=== PATIENT | female | born 1945 | race Caucasian/White ===

== ENCOUNTER → 2017-10-16 | Outpatient (CLI) | payer MEDICARE | END | disposition home or self-care (01) | LOC: CFH 10:17 | PROVIDERS: ATTEND Nurse Practitioner Family | DX: N64.89 Other specified disorders of breast (principal); Z85.3 Personal history of malignant neoplasm of breast | CPT/HCPCS: 77066 ==

== ENCOUNTER → 2017-11-24 | Outpatient (CLI) | payer MEDICARE ==
[~2017-11-24] MED LIST: LIDOCAINE 1%, 20ML ONE; LIDOCAINE 1%-EPI 1:100K, 20ML ONE; LIDOCAINE 1%-EPI 1:100K, 50ML ONE; SODIUM BICARBONATE 4.2%, 5ML ONE
== END | disposition home or self-care (01) ==
LOC: CFH 09:00
PROVIDERS: ATTEND Surgery
DX: N64.89 Other specified disorders of breast (principal); Z85.3 Personal history of malignant neoplasm of breast
CPT/HCPCS: 19081; 38505; 76641; 76942; 77065; J3490; 88305

== ENCOUNTER 2017-12-14 10:26 | Day surgery (SDC) | payer MEDICARE ==
[2017-12-11 14:09] LABS: BASOPHILS # (AUTO) 0.06 x10^3/uL (0-0.1); BASOPHILS % (AUTO) 1 % (0-1); EOSINOPHILS % (AUTO) 3 % (1-7); LYMPHOCYTES # (AUTO) 2.56 x10^3/uL (1-3.4); LYMPHOCYTES % (AUTO) 39 % (22-44); MD NO; MEAN CORPUSCULAR HEMOGLOBIN 30.8 pg (27.0-34.8); MEAN CORPUSCULAR HGB CONC 32.8 g/dL (32.4-35.8); MEAN CORPUSCULAR VOLUME 93.9 fL (80-100); MONOCYTES # (AUTO) 0.62 x10^3/uL (0.2-0.8); MONOCYTES % (AUTO) 9 % (2-9); NEUTROPHILS % (AUTO) 48 % (42-75); PLATELET COUNT 350 x10^3/uL (130-400); RED BLOOD COUNT 4.42 x10^6/uL (3.82-5.3); RED CELL DISTRIBUTION WIDTH 13.5 % (9.6-15.2)
[2017-12-11 14:18] LABS: ALBUMIN 4.2 g/dL (3.4-5.0); ANION GAP 8 mmol/L (5-15); CHLORIDE 101 mmol/L (98-107)
[2017-12-11 14:22] LABS: ALANINE AMINOTRANSFERASE 29 U/L (12-78); ALKALINE PHOSPHATASE 73 U/L (45-117); BILIRUBIN,TOTAL 0.3 mg/dL (0.2-1.0); CREATININE 0.69 mg/dL (0.55-1.02); TOTAL PROTEIN 8.4 g/dL (6.4-8.2)
[~2017-12-14] VITALS: Ht 156.2 cm; Wt 53.3 kg
[~2017-12-14 10:26] MED LIST changes: +BUPIVACAINE/PF-EPI 0.5% 1:200K ONE; +IRBE1TAB37 PO; +ISOSULFAN BLUE 10 MG/ML, 5ML IV ONE; -LIDOCAINE 1%, 20ML ONE; -LIDOCAINE 1%-EPI 1:100K, 20ML ONE; -LIDOCAINE 1%-EPI 1:100K, 50ML ONE; +SERT100T PO; -SODIUM BICARBONATE 4.2%, 5ML ONE
[2017-12-14] MEDS ORDERED: MIDAZOLAM 1 MG/ML, 2ML ONE (11:01)
[2017-12-14] MEDS ORDERED: FENTANYL PF 250 MCG/5ML ONE (11:02)
[2017-12-14] MEDS ORDERED: ROCURONIUM 10MG/ML,5ML ONE ×2 (11:02)
[2017-12-14] MEDS ORDERED: NEOSTIGMINE 1 MG/ML, 10ML ONE (11:03)
[2017-12-14] MEDS ORDERED: GLYCOPYRROLATE 0.4 MG/2 ML, 2ML ONE (11:03)
[2017-12-14] MEDS ORDERED: CEFAZOLIN 1,000 MG ONE ×4 (11:04→13:00)
[2017-12-14] MEDS ORDERED: PROPOFOL 10 MG/ML, 20ML ONE (11:04)
[2017-12-14] MEDS ORDERED: DEXAMETHASONE 4 MG/ML, 1ML ONE ×2 (11:04)
[2017-12-14] MEDS ORDERED: WATER-INJECTION,STERILE 10 ML IV ONE (11:04)
[2017-12-14 11:42] VITALS: BP 133/84
[2017-12-14] MEDS ORDERED: LACTATED RINGERS 1,000 ML IV SCH (11:56)
[2017-12-14] MEDS ORDERED: GABAPENTIN 300 MG CAPSULE ONE (11:57)
[2017-12-14] MEDS ORDERED: SCOPOLAMINE PATCH, 1.5MG PATCH.TD72 TD ONE ×2 (11:58→12:00)
[2017-12-14] MEDS ORDERED: ONDANSETRON ODT 8 MG ONE (11:58)
[2017-12-14] MEDS ORDERED: ACETAMINOPHEN 500 MG TABLET ONE (11:59)
[2017-12-14] MEDS ORDERED: ONDANSETRON 0.8 MG/ML ORAL SOL PO PRN (12:00)
[2017-12-14] MEDS ORDERED: PROMETHAZINE 25 MG SUPP PR PRN (12:00)
[2017-12-14] MEDS ORDERED: OXYcodone 5 MG/5 ML ORAL.SOL UDC PO PRN (12:00)
[2017-12-14] MEDS ORDERED: MEPERIDINE/PF 25MG/0.5ML IVPush PRN (12:00)
[2017-12-14] MEDS ORDERED: LABETALOL 5MG/ML, 20ML IV PRN (12:00)
[2017-12-14] MEDS ORDERED: GABAPENTIN 300 MG CAPSULE PO ONE (12:00)
[2017-12-14] MEDS ORDERED: ONDANSETRON 2MG/ML, 2ML IVPush PRN ×2 (12:00→21:30)
[2017-12-14] MEDS ORDERED: hydrALAzine 20 MG/ML, 1ML IV PRN (12:00)
[2017-12-14] MEDS ORDERED: PROMETHAZINE 12.5 MG SUPP PR PRN (12:00)
[2017-12-14] MEDS ORDERED: ACETAMINOPHEN 500 MG TABLET PO ONE (12:00)
[2017-12-14] MEDS ORDERED: HYDROmorphone 1 MG/ML, 1ML IV PRN (12:00)
[2017-12-14] MEDS ORDERED: ONDANSETRON ODT 8 MG PO ONE (12:00)
[2017-12-14] MEDS ORDERED: PROMETHAZINE 25 MG/ML, 1ML IV PRN (12:00)
[2017-12-14] MEDS ORDERED: MORPHINE SULFATE 4 MG/ML, 1ML IVPush PRN ×2 (12:00→21:30)
[2017-12-14] MEDS ORDERED: PHENYLEPHRINE 10 MG/ML ONE (12:14)
[2017-12-14] MEDS ORDERED: SODIUM CHLORIDE 0.9% PF 10ML ONE ×2 (12:22)
[2017-12-14] MEDS ORDERED: GENTAMICIN 80 MG/2 ML ONE (13:00)
[2017-12-14] MEDS ORDERED: BACITRACIN 50,000 UNIT ONE (13:01)
[2017-12-14] MEDS ORDERED: FENTANYL PF 100 MCG/2ML ONE ×2 (13:46→14:33)
[2017-12-14] MEDS ORDERED: OXYcodone 5 MG/5 ML ORAL.SOL UDC ONE (14:33)
[2017-12-14] MEDS: FENTANYL PF 100 MCG/2ML IV PRN ×2 (14:47→15:01)
[2017-12-14] MEDS ORDERED: MORPHINE SULFATE 4 MG/ML, 1ML ONE (15:28)
== END 2017-12-14 23:55 | disposition home or self-care (01) ==
LOC: OUT 10:26 → EDSTATUS 15:00 → 4NOR 19:00 → OUT 23:55
PROVIDERS: ATTEND Surgery
DX: C50.912 Malignant neoplasm of unspecified site of left female breast (principal); F41.9 Anxiety disorder, unspecified; I10 Essential (primary) hypertension; Z90.710 Acquired absence of both cervix and uterus; Z98.890 Other specified postprocedural states; Z88.5 Allergy status to narcotic agent; Z91.040 Latex allergy status
CPT/HCPCS: 19303; 36415; 38792; 80053; 85025; 88307; 88333; 93005; A9541; C1729; C1762; J0690; J1100; J1580; J2250; J2370; J2704; J2710; J3010; J7120; Q0162

== ENCOUNTER 2018-03-15 14:06 | Day surgery (SDC) | payer MEDICARE ==
[2018-03-13 14:58] LABS: BASOPHILS # (AUTO) 0.05 x10^3/uL (0-0.1); BASOPHILS % (AUTO) 1 % (0-1); EOSINOPHILS # (AUTO) 0.11 x10^3/uL (0-0.4); EOSINOPHILS % (AUTO) 2 % (1-7); LYMPHOCYTES # (AUTO) 2.63 x10^3/uL (1-3.4); LYMPHOCYTES % (AUTO) 43 % (22-44); MD NO; MEAN CORPUSCULAR HEMOGLOBIN 31.2 pg (27.0-34.8); MEAN CORPUSCULAR HGB CONC 33.5 g/dL (32.4-35.8); MEAN CORPUSCULAR VOLUME 93.2 fL (80-100); MEAN PLATELET VOLUME 7.7 fL (7.4-10.4); MONOCYTES # (AUTO) 0.58 x10^3/uL (0.2-0.8); MONOCYTES % (AUTO) 10 % (2-9); NEUTROPHILS % (AUTO) 44 % (42-75); PLATELET COUNT 318 x10^3/uL (130-400); RED BLOOD COUNT 4.32 x10^6/uL (3.82-5.3); RED CELL DISTRIBUTION WIDTH 13.1 % (9.6-15.2)
[2018-03-13 15:10] LABS: ALANINE AMINOTRANSFERASE 29 U/L (12-78); ALBUMIN 4.3 g/dL (3.4-5.0); ANION GAP 8 mmol/L (5-15); CALCIUM 9.4 mg/dL (8.5-10.1); CHLORIDE 103 mmol/L (98-107); CREATININE 0.72 mg/dL (0.55-1.02)
[2018-03-13 15:13] LABS: ALKALINE PHOSPHATASE 62 U/L (45-117); BILIRUBIN,TOTAL 0.6 mg/dL (0.2-1.0); TOTAL PROTEIN 8.4 g/dL (6.4-8.2)
[~2018-03-15] VITALS: Ht 156.2 cm; Wt 54.7 kg
[~2018-03-15 14:06] MED LIST changes: -BUPIVACAINE/PF-EPI 0.5% 1:200K ONE; -ISOSULFAN BLUE 10 MG/ML, 5ML IV ONE
[2018-03-15 14:36] VITALS: BP 162/99
[2018-03-15] MEDS ORDERED: LACTATED RINGERS 1,000 ML IV SCH ×2 (14:44→20:30)
[2018-03-15] MEDS ORDERED: ROPIvacaine/PF 0.5%, 20 ML ONE (16:12)
[2018-03-15] MEDS ORDERED: GENTAMICIN 80 MG/2 ML ONE (16:12)
[2018-03-15] MEDS ORDERED: CEFAZOLIN 1,000 MG ONE ×2 (16:12→18:27)
[2018-03-15] MEDS ORDERED: BACITRACIN 50,000 UNIT ONE (16:13)
[2018-03-15] MEDS ORDERED: EPINEPHRINE 1 MG/ML, 1ML ONE ×2 (16:13→17:36)
[2018-03-15] MEDS ORDERED: LIDOCAINE-MPF 2% ,5ML ONE (16:13)
[2018-03-15] MEDS ORDERED: SODIUM BICARBONATE 1 MEQ/ML, 50ML VIAL ONE (16:13)
[2018-03-15] MEDS ORDERED: FENTANYL PF 250 MCG/5ML ONE (16:28)
[2018-03-15] MEDS ORDERED: FENTANYL PF 100 MCG/2ML ONE ×2 (16:28→18:50)
[2018-03-15] MEDS ORDERED: BUPIVACAINE/PF 0.5% ONE (17:36)
[2018-03-15] MEDS ORDERED: BUPIVACAINE/PF-EPI 0.25% 1:200K ONE (17:36)
[2018-03-15] MEDS ORDERED: ONDANSETRON ODT 8 MG PO PRN (18:00)
[2018-03-15] MEDS ORDERED: MEPERIDINE/PF 25MG/0.5ML IVPush PRN (18:00)
[2018-03-15] MEDS ORDERED: OXYcodone 5 MG/5 ML ORAL.SOL UDC PO PRN (18:00)
[2018-03-15] MEDS ORDERED: KETOROLAC 30 MG/1 ML IV PRN (18:00)
[2018-03-15] MEDS ORDERED: ACETAMINOPHEN 325 MG TABLET PO PRN (18:00)
[2018-03-15] MEDS ORDERED: PROMETHAZINE 25 MG/ML, 1ML IV PRN (18:00)
[2018-03-15] MEDS ORDERED: MORPHINE SULFATE 4 MG/ML, 1ML IVPush PRN ×2 (18:00→20:30)
[2018-03-15] MEDS ORDERED: ONDANSETRON 2MG/ML, 2ML IV PRN (18:00)
[2018-03-15] MEDS ORDERED: DEXAMETHASONE 4 MG/ML, 1ML ONE (18:27)
[2018-03-15] MEDS ORDERED: ROCURONIUM 10MG/ML,5ML ONE (18:27)
[2018-03-15] MEDS ORDERED: NEOSTIGMINE 1 MG/ML, 10ML ONE (18:27)
[2018-03-15] MEDS ORDERED: ONDANSETRON 2MG/ML, 2ML ONE (18:27)
[2018-03-15] MEDS ORDERED: PROPOFOL 10 MG/ML, 20ML ONE (18:27)
[2018-03-15] MEDS ORDERED: GLYCOPYRROLATE 0.2MG/1ML, 5ML ONE (18:27)
[2018-03-15] MEDS ORDERED: SUCCINYLCHOLINE 20 MG/ML, 10ML ONE (18:27)
[2018-03-15] MEDS ORDERED: MEPERIDINE/PF 25MG/0.5ML ONE (18:46)
[2018-03-15] MEDS ORDERED: OXYcodone 5 MG/5 ML ORAL.SOL UDC ONE (18:50)
[2018-03-15] MEDS: FENTANYL PF 100 MCG/2ML IV PRN ×3 (18:53→19:31)
[2018-03-15] MEDS ORDERED: LABETALOL 5MG/ML, 20ML ONE (19:24)
[2018-03-15] MEDS ORDERED: DIPHENHYDRAMINE 50 MG/ML, 1ML IVPush PRN (20:30)
[2018-03-15] MEDS ORDERED: HYDROcodone/APAP 7.5-325MG/15ML UDC PO PRN (20:30)
[2018-03-15] MEDS ORDERED: ONDANSETRON 2MG/ML, 2ML IVPush PRN (20:30)
[2018-03-16] MEDS ORDERED: HYDROCHLOROTHIAZIDE 12.5 MG CAPSULE PO SCH (09:00)
[2018-03-16] MEDS ORDERED: IRBESARTAN 150 MG TABLET PO SCH (09:00)
== END 2018-03-15 23:58 | disposition home or self-care (01) ==
LOC: STAR 14:06 → 4NOR 19:55 → STAR 23:58
PROVIDERS: ATTEND Plastic Surgery
DX: N65.1 Disproportion of reconstructed breast (principal); F41.9 Anxiety disorder, unspecified; I10 Essential (primary) hypertension; Z85.3 Personal history of malignant neoplasm of breast; Z90.710 Acquired absence of both cervix and uterus; Z98.890 Other specified postprocedural states; Z79.899 Other long term (current) drug therapy; Z88.5 Allergy status to narcotic agent; Z88.8 Allergy status to other drugs, medicaments and biological substances
CPT/HCPCS: 11970; 19318; 36415; 80053; 85025; 88305; 93005; C1729; C1789; J0171; J0330; J0690; J1100; J1580; J2175; J2405; J2704; J2710; J3010; J3490; J7120; J2795

== ENCOUNTER → 2018-11-07 | Outpatient (CLI) | payer MEDICARE | END | disposition home or self-care (01) | LOC: CFH 12:16 | PROVIDERS: ATTEND Surgery | DX: Z12.31 Encounter for screening mammogram for malignant neoplasm of breast (principal); Z85.3 Personal history of malignant neoplasm of breast; Z86.000 Personal history of in-situ neoplasm of breast; Z80.3 Family history of malignant neoplasm of breast; Z90.12 Acquired absence of left breast and nipple | CPT/HCPCS: 77063; 77067 ==